=== PATIENT | male | born 1940 | race Caucasian/White ===

== ENCOUNTER → 2022-12-23 | Outpatient (CLI) | payer MEDICARE, OTHER ==
--- NOTE | 2022-12-23 16:52 | Diagnostic Imaging Report ---
INDICATION: PAIN IN LEFT KNEE COMPARISON: 12/09/2022. FINDINGS: Two views of the left knee were obtained. Expected postoperative changes are seen from previous left knee total arthroplasty. Femoral and tibial components appear well-seated. There is no evidence of periprosthetic fracture. No unexpected radiopaque foreign bodies are identified. IMPRESSION: Expected postsurgical changes from previous left knee total arthroplasty, as described above. No evidence of hardware compromise. Dictated by: Dictated on workstation # [id number]
== END ==
LOC: ORTHO 11:02
PROVIDERS: ATTEND Orthopaedic Surgery
DX: M97.12XD Periprosthetic fracture around internal prosthetic left knee joint, subsequent encounter (principal)
CPT/HCPCS: 73560; G0463; 99213

== ENCOUNTER → 2023-01-27 | Outpatient (CLI) | payer MEDICARE, OTHER ==
--- NOTE | 2023-01-27 18:06 | Diagnostic Imaging Report ---
EXAMINATION: Left knee radiographs, 2 views. COMPARISON: Left knee radiographs December 23, 2022. HISTORY: 82-year-old male, left knee pain. Periprosthetic fracture. FINDINGS: There is a left total knee prosthesis. The hardware is intact. There is no identified periprosthetic lucency. There is no identified acute fracture. There are vascular related calcifications. There is degenerative type enthesopathy at the distal quadriceps tendon insertion. IMPRESSION: 1. Intact left total knee prosthesis without identified complication. Dictated by: Dictated on workstation # [id number]
== END ==
LOC: ORTHO 11:04
PROVIDERS: ATTEND Orthopaedic Surgery
DX: M97.12XD Periprosthetic fracture around internal prosthetic left knee joint, subsequent encounter (principal)
CPT/HCPCS: 73560; G0463; 99213